=== PATIENT | female | born 1940 | race Caucasian/White ===

== ENCOUNTER 2018-04-18 18:01 | Inpatient (IN) ==
--- NOTE | 2018-04-18 19:05 | CT ---
EXAM DATE: 04/18/2018 6:59 PM EST AGE/SEX: 77 years / Female INDICATIONS: Acute neurological change. Possible seizure. Cephalgia, nausea and vomiting. CLINICAL DATA: This is the patient's initial encounter. Patient reports that signs and symptoms have been present for 1 day and indicates a pain score of 2/10. MEDICAL/SURGICAL HISTORY: Chronic obstructive pulmonary disease. Hypertension. None. RADIATION DOSE: 55.44 CTDI (mGy) COMPARISON: . TECHNIQUE: CT of the head without contrast. Using automated exposure control and adjustment of the mA and/or kV according to patient size, radiation dose was kept as low as reasonably achievable to ob tain optimal diagnostic quality images. DICOM format image data is available electronically for revi ew and comparison. FINDINGS: There is no evidence for intracranial hemorrhage, mass effect, mass lesions, or edema. The visualize d bony structures appear intact. Slight degree of brain atrophy is seen. Slight periventricular whit e matter changes are seen nonspecific mostly consistent with chronic small vessel ischemic changes. There are no signs of acute infarction for technique. CONCLUSION: Slight chronic small vessel ischemic and atrophic changes. Electronically signed by: Maryanne Dumas MD Board Certified Radiologist 04/18/2018 7:03 PM EST
--- NOTE | 2018-04-18 19:23 | ED ---
HPI General Chief Complaint: Seizure Stated Complaint: Diabetic Time Seen by Provider: 04/18/18 18:14 Source: patient, family and EMS Mode of arrival: EMS Limitations: no limitations History of Present Illness HPI Narrative: 77-year-old female presents to the emergency department by EMS transport from home where she was witnessed by her daughter to have a 2-minute generalized tonic-clonic seizure without tongue trauma or bladder or bowel incontinence. Patient has been having issues with memory just and some intermittent confusion since Saturday evening. This reportedly has been noticed by the and the daughter and family members. 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 No prior history of seizure. Patient was noted by paramedics to have a blood sugar of 56 was given D10 and on repeat blood sugar was 150 and 152. Patient was afebrile. Patient had a period of being postictal. Patient did have an episode of vomiting without aspiration witnessed by paramedics and family members and she was transferred from the ground where the family had placed her and then onto the stretcher. Upon arrival to the emergency department episode of small amount of emesis no hematemesis no coffee-ground emesis no bilious emesis. Patient complains of ongoing lower abdominal pain that she describes as mild. No history of colitis or diverticulitis. No recent antibiotic use. No diarrhea melena hematochezia. Patient has been having some urinary frequency and urgency and no dysuria. No flank pain or hematuria. Patient's has history of hypertension dyslipidemia hypothyroidism COPD and gouty arthritis. Patient denies personal history of cardiac disease TIA CVA headaches or seizure disorder. Patient has multiple vague complaints of having on and off subjective fever sore throat chest pain arm pain. Patient notes some mild headache at this time that she cannot quantitate just says is mild and it comes and goes. Patient complains of having neck pain since her seizure but on exam has no neck pain and denies pain at this time. Patient has had no sinus pressure drainage denies any sore throat this time denies earache or neck stiffness. Patient has been having some intermittent chest pain but denies chest pain at this time. Patient denies having any shortness of breath or orthopnea or exacerbation of her history of COPD. Patient has noted that for some time now she has recurrent nausea but is unable to identify duration of her nausea. Patient denies having any vomiting except for today. Patient's been having some lower abdominal pain but is not sure as to how long but has noticed it over the past 2 days. No change in her bowel movements. Patient has had no new arm or leg numbness tingling or weakness or ataxia of gait. Patient has had injury to her right upper extremity in the past and at times has difficulty with range of motion of the right upper extremity secondary to taking her pain. Family member has not noticed any change in her use of her upper extremities or lower extremities or ataxia of gait. Patient denies any visual disturbance double vision loss of vision or blurred vision. Patient had no photophobia. Patient states headache that she has is mild not sudden onset not thunderclap and not worst ever and has not taken any medications. Patient's had no change in her medications. Reportedly her primary has been monitoring her blood sugar for borderline abnormal blood sugar family does not know if it is abnormally higher abnormally low. Patient is not aware of her blood sugar being abnormally higher abnormally low. Patient is also more recently been monitored to have elevated platelets and has an appointment next week with a physician to evaluate her platelet count. Increased bruising or bleeding. complaint: Reports seizure Onset (ago): minute(s) Description of Episode: Reports loss of consciousness, tonic-clonic movement and post-event confusion; Denies bladder incontinence and bowel incontinence Duration of episode: 2 -: minutes(s) (per daughter/witness) Witnessed: yes - by bystander (daughter) Trauma: No Seizure History: Reports none Place: home Possible Precipitating Event: Reports none Associated symptoms: Reports chest pain (on and off; none now), confusion (on and off since Saturday evening per patient and at bedside), fever/ chills (subjective on and off "for awhile") and other (nausea and lower abdominal pain); Denies cough, diaphoresis, loss of appetite, malaise, rash, shortness of breath, syncope and weakness Treatments prior to arrival: Reports other (zofran emesis x 1 and on arrival to the ED emesis x 1) Related Data Home Medications Medication Instructions Recorded Confirmed allopurinol 100 mg PO DAILY 04/18/18 04/18/18 clonidine HCl 0.2 mg PO BID 04/18/18 04/18/18 isosorbide mononitrate 30 mg PO DAILY 04/18/18 04/18/18 levothyroxine 100 mcg PO DAILY 04/18/18 04/18/18 lisinopril-hydrochlorothiazide 1 tab PO DAILY 04/18/18 04/18/18 pantoprazole 40 mg PO DAILY 04/18/18 04/18/18 simvastatin 20 mg PO QPM 04/18/18 04/18/18 Allergies Allergy/AdvReac Type Severity Reaction Status Date / Time No Known Allergies Allergy Verified 04/18/18 18:13 Review of Systems ROS: all other systems reviewed are negative Constitutional Reports as per HPI Eyes Denies blurry vision, Denies diplopia, Denies eye pain and Denies photophobia ENT Reports headache(s) ("very mild") and Reports sore throat (on and off for awhile none today) Cardiovascular Reports chest pain (on and off none now), Denies diaphoresis, Denies edema, Denies claudication, Denies palpitations and Denies dyspnea Respiratory Denies chest congestion, Denies cough, Denies pain on inspiration and Denies dyspnea Gastrointestinal Reports abdominal pain (lower abdomen for a few days), Reports nausea and Reports vomiting (x 2 today) Genitourinary Reports urinary frequency and Reports dysuria Musculoskeletal Denies muscle weakness, Reports neck pain (on and off since seizure), Denies numbness, Reports stiffness (right arm pain for few years) and Denies tingling Integumentary/Breasts Denies pruritus, Denies rash and Denies wounds Neurologic Denies abnormal hearing, Denies abnormal speech, Denies abnormal gait, Reports confusion (intermittent since Saturday), Denies dizziness, Reports headache(s) (as above), Denies loss of vision, Reports memory loss (mild), Denies numbness, Reports convulsions (today ), Denies sensory deficit, Denies paresthesias, Denies disequilibrium and Denies weakness Psychiatric Denies anxiety, Reports difficulty concentrating, Denies auditory hallucinations , Denies mood swings and Denies visual hallucinations Endocrine Reports polyuria Comments: per family per PCP "watching borderline sugar" Hematologic/Lymphatic Denies easy bruising, Denies lymphadenopathy and Reports other (high platlets) Allergic/Immunologic Denies urticaria and Denies wheezing PMFSH Medical History Medical History Borderline diabetes (Acute) COPD (chronic obstructive pulmonary disease) (Acute) High cholesterol (Acute) Hypertension (Acute) Sleep apnea (Acute) Surgical History Surgical History No history of previous surgery (Acute) Social History Social History Substance History: No History of Abuse Smoking Status: Former smoker How Often Do You Have a Drink Containing Alcohol: Never Recent Travel in [facility] within the Last 8 Weeks: No Recent Out of Country Travel within the Last 8 Weeks: No Immunization History Tetanus Immunization: >5 Years Exam Narrative Exam Narrative: GENERAL: Well-developed well-nourished elderly female in no acute distress no respiratory distress GCS 15 NIH SS 0 SKIN: Focused skin assessment warm/dry. HEAD: Atraumatic. Normocephalic. EYES: Pupils equal and round. No scleral icterus. No injection or drainage. ENT: No nasal bleeding or discharge. Mucous membranes pink and moist. NECK: Trachea midline. No JVD. No midline tenderness to direct palpation along the cervical spine no bony step-off no meningismus. CARDIOVASCULAR: Regular rate and rhythm. No murmur appreciated. RESPIRATORY: No accessory muscle use. Clear to auscultation. Breath sounds equal bilaterally. GASTROINTESTINAL: Abdomen soft, left lower quadrant and suprapubic tenderness to palpation without guarding or rebound, nondistended. Hepatic and splenic margins not palpable. MUSCULOSKELETAL: No obvious deformities. No clubbing. No cyanosis. No edema. NEUROLOGICAL: Awake and alert. No obvious cranial nerve deficits. Motor grossly within normal limits. Sensory exam intact to light touch. No pronator drift. No limb ataxia. Normal speech. PSYCHIATRIC: Appropriate mood and affect; insight and judgment normal. Course Initial Documented Vital Signs Temperature 98.1 F 04/18/18 18:05 Pulse Rate 85 04/18/18 18:05 Respiratory Rate 18 04/18/18 18:05 Blood Pressure 156/91 H 04/18/18 18:05 Pulse Oximetry 92 L 04/18/18 18:05 Last Documented Vital Signs Temperature 98.1 F 04/18/18 18:05 Pulse Rate 72 04/18/18 20:41 Respiratory Rate 16 04/18/18 20:41 Blood Pressure 128/68 04/18/18 20:41 Pulse Oximetry 94 L 04/18/18 20:41 Medical Decision Making MDM Narrative Medical decision making narrative: 77-year-old female presents to the emergency department by EMS transport from home where she was witnessed to have a 2- minute tonic-clonic seizure by family members without associated trauma. No prior history of trauma. Episode of vomiting post convulsion and episode of emesis in the emergency department no hematemesis or coffee-ground emesis. Patient with multiple vague symptoms that have been present over the past several days to weeks also family members report that since Saturday she has been having episodes of complete forgetfulness and loss of thought and inability to concentrate that are brief in duration no associated seizure activity with these episodes is also being monitored for borderline diabetes possibly and noted to be hypoglycemic with a blood sugar of 56 by paramedics. Patient states that she has had some vague symptoms such as on and off subjective fever but is taken no medication for this on and off sore throat but is taken no medication for this on and off mild headache is taken no medications has had on and off lower abdominal pain and polyuria. Patient has no fever today has had no headache today although has mild headache at this time has had frequent urination no dysuria at this time and still has lower abdominal pain at this time. Patient is also complained of some nonradiating chest pain that has been intermittent but denies any at this time. Patient has chronic right upper extremity pain that functionally seems to be bothering her at this time but denies any weakness in the extremity and does not demonstrate any weakness on physical exam. There is no deformity of the extremity and daughter reports no injury with this episode of seizure. Patient was not noticed to have a tongue trauma and no episode of incontinence. IV access obtained patient placed on potline monitor continuous pulse oximetry stat CT brain noncontrast ordered along with a CT of the cervical spine EKG lab work ordered patient with complaint of nausea given additional dose of Zofran blood sugar repeated of 150. Will obtain urine specimen chest x-ray lactic acid and serum ammonia @ 9:10 PM troponin I elevated 0.13, high risk range no chest pain --EKG: Normal sinus rhythm rate [address] elevation injury pattern or ectopy noted no ischemic changes, artifact is present at baseline; patient's physical exam history lab values EKG CT brain noncontrast have been discussed with Dr. Alvarez who will accept patient to her service for new onset seizure ACS elevated troponin I thrombocytosis with history of hypertension, dyslipidemia, prescribed isosorbide, and borderline diabetes. Patient will be started on heparin without bolus per Dr. Alvarez will start heparin here in the emergency department. Patient having no chest pain at this time. Patient will be admitted to stepdown at [facility]. Medical Screen Exam Complete: Yes Emergency Medical Condition: Yes Lab Data Lab results reviewed: Yes I reviewed the patient's lab results. Result diagrams: 04/18/18 19:00 04/18/18 19:00 Lab Results 04/18/18 04/18/18 04/18/18 Range/Units 18:18 19:00 19:00 CBC w Diff Slide review pending WBC 5.9 (4.0-11.0) th/mm3 RBC 6.50 H (4.00-5.30) mil/mm3 Hgb 15.7 H (11.6-15.3) gm/dL Hct 49.6 H (35.0-46.0) % MCV 76.3 L (80.0-100.0) fL MCH 24.2 L (27.0-34.0) pg MCHC 31.7 L (32.0-36.0) % RDW 15.7 (11.6-17.2) % Plt Count 553 H (150-450) th/mm3 MPV 9.2 (7.0-11.0) fL Neut % (Auto) 67.1 (16.0-70.0) % Lymph % (Auto) 23.7 (9.0-44.0) % Pitkin % (Auto) 8.0 (0.0-8.0) % Eos % (Auto) 0.3 (0.0-4.0) % Baso % (Auto) 0.9 (0.0-2.0) % Neut # (Auto) 3.9 (1.8-7.7) th/mm3 Lymph # (Auto) 1.4 (1.0-4.8) th/mm3 Pitkin # (Auto) 0.5 (0.0-0.9) th/mm3 Eos # (Auto) 0.0 (0.0-0.4) th/mm3 Baso # (Auto) 0.1 (0.0-0.2) th/mm3 WBC Differential . Diff Scan Auto diff confirmed Differential Comment . Platelet Estimate High H (Normal) Platelet Morphology Enlarged H (Normal) PT (9.8-11.6) sec INR Ratio APTT (23.4-31.7) sec Sodium 134 L (136-145) meq/L Potassium 5.0 (3.5-5.1) meq/L Chloride 102 (98-107) meq/L Carbon Dioxide 25.9 (21.0-32.0) meq/L Anion Gap 6 (5-15) meq/L BUN 24 H (7-18) mg/dL Creatinine 1.20 H (0.50-1.00) mg/dL Estimated GFR 43 L (>89) mL/min POC Glucose 152 (68-110) mg/dl Random Glucose 103 (74-106) mg/dL Lactic Acid (0.4-2.0) mmol/L Calcium 9.1 (8.5-10.1) mg/dL Magnesium 1.9 (1.5-2.5) mg/dL Ammonia (11-32) mcmol/L Troponin I (0.02-0.05) ng/mL Urine Color (Yellw/Straw) Urine Clarity (Clear) Urine pH (5.0-8.5) Ur Specific Chamberlain (1.002-1.035) Urine Protein (Neg-Trace) mg/dL Urine Glucose (UA) (Negative) mg/dL Urine Ketones (Negative) mg/dL Urine Occult Blood (Negative) Urine Nitrate (Negative) Urine Bilirubin (Negative) Urine Urobilinogen (Less than 2) mg/dL Ur Leukocyte Esterase (Negative) Urine WBC (0-5) /hpf Ur Squamous Epith Cells (0-5) /hpf Urine Bacteria (None) /hpf Urine Mucus (Occasional) /lpf Micro UA Comment Ur Microscopic Review 04/18/18 04/18/18 04/18/18 Range/Units 19:00 19:31 19:40 CBC w Diff WBC (4.0-11.0) th/mm3 RBC (4.00-5.30) mil/mm3 Hgb (11.6-15.3) gm/dL Hct (35.0-46.0) % MCV (80.0-100.0) fL MCH (27.0-34.0) pg MCHC (32.0-36.0) % RDW (11.6-17.2) % Plt Count (150-450) th/mm3 MPV (7.0-11.0) fL Neut % (Auto) (16.0-70.0) % Lymph % (Auto) (9.0-44.0) % Pitkin % (Auto) (0.0-8.0) % Eos % (Auto) (0.0-4.0) % Baso % (Auto) (0.0-2.0) % Neut # (Auto) (1.8-7.7) th/mm3 Lymph # (Auto) (1.0-4.8) th/mm3 Pitkin # (Auto) (0.0-0.9) th/mm3 Eos # (Auto) (0.0-0.4) th/mm3 Baso # (Auto) (0.0-0.2) th/mm3 WBC Differential Diff Scan Differential Comment Platelet Estimate (Normal) Platelet Morphology (Normal) PT 11.2 (9.8-11.6) sec INR 1.1 Ratio APTT 31.7 (23.4-31.7) sec Sodium (136-145) meq/L Potassium (3.5-5.1) meq/L Chloride (98-107) meq/L Carbon Dioxide (21.0-32.0) meq/L Anion Gap (5-15) meq/L BUN (7-18) mg/dL Creatinine (0.50-1.00) mg/dL Estimated GFR (>89) mL/min POC Glucose (68-110) mg/dl Random Glucose (74-106) mg/dL Lactic Acid (0.4-2.0) mmol/L Calcium (8.5-10.1) mg/dL Magnesium (1.5-2.5) mg/dL Ammonia (11-32) mcmol/L Troponin I 0.13 H (0.02-0.05) ng/mL Urine Color Yellow (Yellw/Straw) Urine Clarity Slightly cloudy (Clear) Urine pH 6.0 (5.0-8.5) Ur Specific Chamberlain 1.015 (1.002-1.035) Urine Protein Negative (Neg-Trace) mg/dL Urine Glucose (UA) 100 H (Negative) mg/dL Urine Ketones Negative (Negative) mg/dL Urine Occult Blood Trace (Negative) Urine Nitrate Negative (Negative) Urine Bilirubin Negative (Negative) Urine Urobilinogen 0.2 (Less than 2) mg/dL Ur Leukocyte Esterase Negative (Negative) Urine WBC 0-5 (0-5) /hpf Ur Squamous Epith Cells 0-5 (0-5) /hpf Urine Bacteria Few H (None) /hpf Urine Mucus Rare H (Occasional) /lpf Micro UA Comment Culture not ind Ur Microscopic Review Microscopic reviewed 04/18/18 04/18/18 Range/Units 19:40 19:40 CBC w Diff WBC (4.0-11.0) th/mm3 RBC (4.00-5.30) mil/mm3 Hgb (11.6-15.3) gm/dL Hct (35.0-46.0) % MCV (80.0-100.0) fL MCH (27.0-34.0) pg MCHC (32.0-36.0) % RDW (11.6-17.2) % Plt Count (150-450) th/mm3 MPV (7.0-11.0) fL Neut % (Auto) (16.0-70.0) % Lymph % (Auto) (9.0-44.0) % Pitkin % (Auto) (0.0-8.0) % Eos % (Auto) (0.0-4.0) % Baso % (Auto) (0.0-2.0) % Neut # (Auto) (1.8-7.7) th/mm3 Lymph # (Auto) (1.0-4.8) th/mm3 Pitkin # (Auto) (0.0-0.9) th/mm3 Eos # (Auto) (0.0-0.4) th/mm3 Baso # (Auto) (0.0-0.2) th/mm3 WBC Differential Diff Scan Differential Comment Platelet Estimate (Normal) Platelet Morphology (Normal) PT (9.8-11.6) sec INR Ratio APTT (23.4-31.7) sec Sodium (136-145) meq/L Potassium (3.5-5.1) meq/L Chloride (98-107) meq/L Carbon Dioxide (21.0-32.0) meq/L Anion Gap (5-15) meq/L BUN (7-18) mg/dL Creatinine (0.50-1.00) mg/dL Estimated GFR (>89) mL/min POC Glucose (68-110) mg/dl Random Glucose (74-106) mg/dL Lactic Acid 1.2 (0.4-2.0) mmol/L Calcium (8.5-10.1) mg/dL Magnesium (1.5-2.5) mg/dL Ammonia 18 (11-32) mcmol/L Troponin I (0.02-0.05) ng/mL Urine Color (Yellw/Straw) Urine Clarity (Clear) Urine pH (5.0-8.5) Ur Specific Chamberlain (1.002-1.035) Urine Protein (Neg-Trace) mg/dL Urine Glucose (UA) (Negative) mg/dL Urine Ketones (Negative) mg/dL Urine Occult Blood (Negative) Urine Nitrate (Negative) Urine Bilirubin (Negative) Urine Urobilinogen (Less than 2) mg/dL Ur Leukocyte Esterase (Negative) Urine WBC (0-5) /hpf Ur Squamous Epith Cells (0-5) /hpf Urine Bacteria (None) /hpf Urine Mucus (Occasional) /lpf Micro UA Comment Ur Microscopic Review Imaging Data Attestation: I personally reviewed and interpreted this imaging study as follows : Radiologist's impression: Head CT 04/18/18 18:19 CONCLUSION: Slight chronic small vessel ischemic and atrophic changes. Cervical Spine CT 04/18/18 19:23 CONCLUSION: Degenerative spondylosis without any significant compromise to the exiting nerve roots or the thecal sac. Chest X-Ray 04/18/18 19:30 CONCLUSION: Mild left lung atelectasis . ECG Data EKG Prior to Arrival: No Attestation: I personally reviewed and interpreted this ECG as follows: Discharge Plan Discharge Disposition Patient Disposition: ED Admit(ED Internal Use Only) Discharge Condition Condition: Stable Discharge Details Diagnosis: New onset seizure, ACS (acute coronary syndrome), Elevated troponin I level, Thrombocytosis Physicians Team ED Provider: Crystal Rabago Primary Care Provider: Do Jacque Miguel Rxs /Orders / Referrals /Forms Prescriptions: No Action isosorbide mononitrate 30 mg Tablet Extended Release 24 Hr 30 mg PO DAILY RF: 0 allopurinol 100 mg Tablet 100 mg PO DAILY RF: 0 levothyroxine 100 mcg Tablet 100 mcg PO DAILY RF: 0 clonidine HCl 0.2 mg Tablet 0.2 mg PO BID RF: 0 pantoprazole 40 mg Tablet,Delayed Release (Dr/Ec) 40 mg PO DAILY RF: 0 simvastatin 20 mg Tablet 20 mg PO QPM RF: 0 lisinopril-hydrochlorothiazide 10-12.5 mg Tablet 1 tab PO DAILY RF: 0 Discharge Interventions Interventions: Vital Signs Last Done: 04/18/18 20:41 Status ED Status: With Doctor
[2018-04-18 19:24] LABS: Baso # (Auto) 0.1 th/mm3 (0.0-0.2); Baso % (Auto) 0.9 % (0.0-2.0); Eos % (Auto) 0.3 % (0.0-4.0); Hematocrit 49.6 % (35.0-46.0); Hemoglobin 15.7 gm/dL (11.6-15.3); Lymph # (Auto) 1.4 th/mm3 (1.0-4.8); Lymph % (Auto) 23.7 % (9.0-44.0); Mean Corpuscular HGB Conc 31.7 % (32.0-36.0); Mean Corpuscular Hemoglobin 24.2 pg (27.0-34.0); Mean Corpuscular Volume 76.3 fL (80.0-100.0); Mean Platelet Volume 9.2 fL (7.0-11.0); Mono # (Auto) 0.5 th/mm3 (0.0-0.9); Neut # (Auto) 3.9 th/mm3 (1.8-7.7); Neut % (Auto) 67.1 % (16.0-70.0); Platelet Count 553 th/mm3 (150-450); Red Cell Distribution Width 15.7 % (11.6-17.2); White Blood Count 5.9 th/mm3 (4.0-11.0)
--- NOTE | 2018-04-18 19:46 | XR ---
EXAM DATE: 04/18/2018 7:39 PM EST AGE/SEX: 77 years / Female INDICATIONS: Shortness of breath. CLINICAL DATA: This is the patient's initial encounter. Patient reports that signs and symptoms have been present for 2 days and indicates a pain score of 0/10. MEDICAL/SURGICAL HISTORY: . Chronic obstructive pulmonary disease. Hypertension. None. COMPARISON: No prior exams available for comparison. FINDINGS: The lungs are clear without infiltrate, nodule, or mass except for slight linear atelectasi s left lower lung . There is no appreciable pleural effusion for technique. Heart and mediastinum a re unremarkable. CONCLUSION: Mild left lung atelectasis . Electronically signed by: Maryanne Dumas MD Board Certified Radiologist 04/18/2018 7:44 PM EST
[2018-04-18 19:48] LABS: Bilirubin,Urine Negative (Negative); Clarity,Urine Slightly Cloudy (Clear); Color,Urine Yellow (Yellw/Straw); Glucose,Urine (UA) 100 mg/dL (Negative); Leukocyte Esterase,Urine Negative (Negative); Nitrite,Urine Negative (Negative); Specific Gravity,Urine 1.015 (1.002-1.035); Urobilinogen,Urine 0.2 mg/dL (Less than 2)
[2018-04-18 19:54] LABS: Bacteria,Urine Few /hpf; Mucus,Urine Rare /lpf (Occasional); Squamous Epithelial Cell,Urine 0-5 /hpf (0-5); WBC,Urine 0-5 /hpf (0-5)
[2018-04-18 20:01] LABS: Activated Partial Thrombo Time 31.7 sec (23.4-31.7); INR 1.1 Ratio; Prothrombin Time 11.2 sec (9.8-11.6)
[2018-04-18 20:11] LABS: Calcium 9.1 mg/dL (8.5-10.1); Carbon Dioxide 25.9 meq/L (21.0-32.0); Magnesium 1.9 mg/dL (1.5-2.5)
--- NOTE | 2018-04-18 20:15 | CT ---
EXAM DATE: 04/18/2018 8:08 PM EST AGE/SEX: 77 years / Female INDICATIONS: Trauma. Possible seizure. Right neck pain. CLINICAL DATA: This is the patient's initial encounter. Patient reports that signs and symptoms have been present for 1 day and indicates a pain score of 2/10. MEDICAL/SURGICAL HISTORY: Chronic obstructive pulmonary disease. Hypertension. None. RADIATION DOSE: 28.09 CTDI (mGy) COMPARISON: . TECHNIQUE: Contiguous axial images were obtained using helical multirow detector technique. The vol umetric data was post-processed with multiplanar reconstruction in oblique axial, sagittal, and coron al planes. Using automated exposure control and adjustment of the mA and/or kV according to patient s ize, radiation dose was kept as low as reasonably achievable to obtain optimal diagnostic quality ion ges. DICOM format image data is available electronically for review and comparison. FINDINGS: No significant subluxation or soft tissue swelling is seen. No definite fracture is identified for te chnique. C2-C3: No appreciable compromise to the thecal sac, exiting nerve roots are seen. The neural foramin a are patent bilaterally. No appreciable thecal sac stenosis is seen. C3-C4: No appreciable compromise to the thecal sac, exiting nerve roots are seen. The neural foramin a are patent bilaterally. No appreciable thecal sac stenosis is seen. Slight bulging disc and hypertr ophic changes are seen with indentation on the thecal sac and no significant compromise to the thecal sac or the exiting nerve roots. C4-C5: Significant degenerative change is present in the disc space Slight bulging disc and hypertrophic changes are seen with indentation on the thecal sac and no signi ficant compromise to the thecal sac or the exiting nerve roots. Slight osteophyte formation bulging d isc protrude posteriorly partially into the bilateral lateral recess without any significant lateral recess stenosis. C5-C6: Significant degenerative change is present in the disc space Slight bulging disc and hypertrophic changes are seen with indentation on the thecal sac and no signi ficant compromise to the thecal sac or the exiting nerve roots. Slight osteophyte formation bulging d isc protrude posteriorly partially into the bilateral lateral recess without any significant lateral recess stenosis. C6-C7: Moderate degenerative change is present in the disc space Slight bulging disc and hypertrophic changes are seen with indentation on the thecal sac and no signi ficant compromise to the thecal sac or the exiting nerve roots. C7-T1: No appreciable compromise to the thecal sac, exiting nerve roots are seen. The neural foramin a are patent bilaterally. No appreciable thecal sac stenosis is seen. CONCLUSION: Degenerative spondylosis without any significant compromise to the exiting nerve roots o r the thecal sac. Electronically signed by: Maryanne Dumas MD Board Certified Radiologist 04/18/2018 8:13 PM EST
[2018-04-18] MEDS ORDERED: Bisacodyl 10 MG Supp RECTAL PRN (21:07)
[2018-04-18] MEDS ORDERED: Acetaminophen 325 MG Tablet PO PRN (21:07)
[2018-04-18] MEDS ORDERED: Heparin Drip 25,000 UNIT/250 ML BAG IV.CONT PRN (21:11)
[2018-04-18] MEDS: Sod Chloride 0.9% Inj 1,000 ML IV.CONT SCH (21:40)
--- NOTE | 2018-04-18 21:58 | ECG ---
Date Performed: 04/18/2018 Time Performed: 20:23:45 PTAGE: 77 years EKG: Sinus rhythm PATTERN CONSISTENT WITH PULMONARY DISEASE LEFT ANTERIOR FASCICULAR BLOCK ABNORMAL ECG No significant change from prior electrocardiogram. PREVIOUS TRACING : 05/25/2001 12.48 DOCTOR: Jaime Amador Interpretating Date/Time 04/18/2018 21:57:58
[2018-04-19 04:20] LABS: Baso # (Auto) 0.1 th/mm3 (0.0-0.2); Eos % (Auto) 0.3 % (0.0-4.0); Hematocrit 48.2 % (35.0-46.0); Hemoglobin 15.3 gm/dL (11.6-15.3); Lymph # (Auto) 1.5 th/mm3 (1.0-4.8); Lymph % (Auto) 22.7 % (9.0-44.0); Mean Corpuscular HGB Conc 31.8 % (32.0-36.0); Mean Corpuscular Hemoglobin 24.2 pg (27.0-34.0); Mean Corpuscular Volume 76.1 fL (80.0-100.0); Mean Platelet Volume 9.6 fL (7.0-11.0); Mono # (Auto) 0.5 th/mm3 (0.0-0.9); Mono % (Auto) 6.8 % (0.0-8.0); Neut # (Auto) 4.6 th/mm3 (1.8-7.7); Neut % (Auto) 68.2 % (16.0-70.0); Platelet Count 558 th/mm3 (150-450); Red Blood Count 6.34 mil/mm3 (4.00-5.30); Red Cell Distribution Width 15.8 % (11.6-17.2); White Blood Count 6.7 th/mm3 (4.0-11.0)
[2018-04-19 06:03] LABS: Alanine Aminotransferase 13 U/L (10-53); Alkaline Phosphatase 72 U/L (45-117); Anion Gap 8 meq/L (5-15); Aspartate Aminotransferase 25 U/L (15-37); Blood Urea Nitrogen 19 mg/dL (7-18); Calcium 8.8 mg/dL (8.5-10.1); Carbon Dioxide 25.5 meq/L (21.0-32.0); Chloride 103 meq/L (98-107); Glomerular Filtration Rate 48 mL/min (>89); Glucose,Random 100 mg/dL (74-106); Potassium 3.8 meq/L (3.5-5.1); Sodium 136 meq/L (136-145); Total Protein 7.7 g/dL (6.4-8.2)
[2018-04-19 06:36] LABS: Cholesterol 122 mg/dL (120-200)
[2018-04-19 06:38] LABS: Chol/HDL Ratio 3.42 Ratio; HDL Cholesterol 35.6 mg/dL (40.0-60.0); LDL Cholesterol,Calculated 71 mg/dL (0-99); Triglycerides 75 mg/dL (42-150)
[2018-04-19] MEDS: Senna/Docusate Sodium 8.6/50 MG Tablet PO SCH ×2 (08:41→20:53)
[2018-04-19] MEDS: Sod Chloride 0.9% Inj 1,000 ML IV.CONT SCH ×2 (08:41→20:29)
--- NOTE | 2018-04-19 11:51 | P.HPIM ---
History of Present Illness Primary Care Physician: Do Jacque Miguel Chief Complaint: Seizure History of Present Illness: Mrs. Moon is a 77-year-old female. She has a distant past history of seizure. It is reported by her daughter who witnessed the seizure that she had a 2-minute generalized tonic-clonic seizure. Subclinical seizure activity could have also been present as it was reported that she had some confusion which was an acute change from baseline starting about 3 days ago. She can recall being slightly off with her cognitive function. She does not recall the seizure. Postictal state was present but has resolved by the time I am seeing this patient. She did vomit after the seizure but does not have persistent nausea. At baseline she has COPD and uses oxygen intermittently. She also has coronary artery disease and chronic angina. She has not had any chest pain changes from baseline. When seen today she does not report chest pain. Troponin levels have been monitored and have stayed from 0.13-0.16, relatively flat. Cardiac strain on top of underlying coronary artery disease could have occurred during the 2-minute seizure. Additionally patient apparently has some mild chronic kidney disease which could also cause chronic mild elevation in her troponin. No acute chest pains reported by the patient before or after seizure activity. Inpatient Certification Inpatient Certification: I certify that the inpatient services were ordered in accordance with Medicare regulations governing the order. This includes certification that hospital inpatient services are reasonable and necessary and in the case of services not specified as inpatient-only under 42 CFR 419.22(n), that they are appropriately provided as inpatient services in accordance to with the 2-midnight benchmark under 43 CFR 412.3(e) Estimated Total Length of Stay (Days): 2 Plans for Post Hospital Care: Not yet determined Review of Systems Constitutional: No fevers, no chills no night sweats, no fatigue, no weakness Eyes: No eye pain, no blurry vision, no loss of vision ENT: No sore throat, no ear pain, no rhinorrhea Cardiovascular: No chest pain, no tachycardia, no palpitations, no syncope Respiratory: No wheezing, no cough, no shortness of breath Gastrointestinal: No abdominal pain, no black tarry stools, no bright red blood per rectum, no vomiting, no diarrhea Musculoskeletal: No joint pain, no muscle cramps, no stiffness Integumentary: No rash, no ulcers, no drainage Neurologic: No sensory loss, no loss of motor function, no dizziness, seizure Psychiatric: No behavioral changes, no hallucinations, no suicidal ideations [facility] Medical History Medical History Borderline diabetes (Acute) COPD (chronic obstructive pulmonary disease) (Acute) High cholesterol (Acute) Hypertension (Acute) Sleep apnea (Acute) Surgical History Surgical History No history of previous surgery (Acute) Family History Family History Other Osteoarthritis Social History Social History Substance History: No History of Abuse Second Hand Smoke Exposure: No Smoking Status: Former smoker How Often Do You Have a Drink Containing Alcohol: Never Recent Travel in [facility] within the Last 8 Weeks: No Recent Out of Country Travel within the Last 8 Weeks: No Immunization History Tetanus Immunization: Unsure Hx Influenza Vaccine This Season: Yes Medications and Allergies Allergies Allergy/AdvReac Type Severity Reaction Status Date / Time No Known Allergies Allergy Verified 04/18/18 18:13 Home Medications Medication Instructions Recorded Confirmed Type allopurinol 100 mg PO DAILY 04/18/18 04/18/18 History clonidine HCl 0.2 mg PO BID 04/18/18 04/18/18 History isosorbide mononitrate 30 mg PO DAILY 04/18/18 04/18/18 History levothyroxine 100 mcg PO DAILY 04/18/18 04/18/18 History lisinopril-hydrochlorothiazide 1 tab PO DAILY 04/18/18 04/18/18 History pantoprazole 40 mg PO DAILY 04/18/18 04/18/18 History simvastatin 20 mg PO QPM 04/18/18 04/18/18 History Active Medications: Active Medications Acetaminophen (Tylenol) 650 mg PO Q4H PRN PRN Reason: Temp > 100.4 Last Admin: 04/19/18 03:51 Dose: 650 mg Al Hydroxide/Mg Hydroxide (Milk Of Magnesia Liq) 30 ml PO Q12H PRN PRN Reason: Mild Constipation Aspirin (Ecotrin) 81 mg PO DAILY [facility] Last Admin: 04/19/18 08:41 Dose: 81 mg Bisacodyl (Dulcolax Supp) 10 mg RECTAL DAILY PRN PRN Reason: SEVERE CONSITIPATION Sodium Chloride (Ns Inj) 1,000 mls @ 100 mls/hr IV.CONT .Q10H [facility] Last Admin: 04/19/18 08:41 Dose: 100 mls/hr Heparin Sodium/Dextrose (Heparin/D5w 25,000 U/250 Ml) 25,000 unit in 250 mls @ 0 mls/hr IV.CONT TITRATE PRN; Protocol PRN Reason: Per Protocol Last Titration: 04/19/18 05:39 Dose: 800 units/hr, 8 mls/hr Lactulose (Lactulose Liq) 30 ml PO DAILY PRN PRN Reason: SEVERE CONSITIPATION Lorazepam (Ativan Inj) 1 mg IV.PUSH Q5M PRN PRN Reason: SEIZURES Ondansetron HCl (Zofran Inj) 4 mg IV.PUSH Q6H PRN PRN Reason: NAUSEA OR VOMITING Senna/Docusate Sodium (Ni-Colace) 1 tab PO BID [facility] Last Admin: 04/19/18 08:41 Dose: 1 tab Sennosides (Senokot) 17.2 mg PO Q12H PRN PRN Reason: Moderate Constipation Sodium Chloride (Ns Flush) 2 ml IV.FLUSH PRN PRN PRN Reason: FLUSH AFTER USING IV ACCESS Sodium Chloride (Ns Flush) 2 ml IV.FLUSH BID [facility] Last Admin: 04/19/18 08:42 Dose: 2 ml Sodium Chloride (Ns Flush) 2 ml IV.FLUSH PRN PRN PRN Reason: FLUSH AFTER USING IV ACCESS Physical Exam Vital signs: Vital Signs 04/18/18 18:05 04/18/18 19:00 04/18/18 19:29 Temperature 98.1 F Pulse Rate 85 74 69 Respiratory Rate 18 16 Blood Pressure 156/91 H 136/82 Pulse Oximetry 92 L 94 L 94 L 04/18/18 20:41 04/18/18 22:08 04/18/18 23:00 Temperature Pulse Rate 72 75 76 Respiratory Rate 16 16 19 Blood Pressure 128/68 113/62 Pulse Oximetry 94 L 97 94 L 04/18/18 23:02 04/18/18 23:37 04/18/18 23:42 Temperature 99.3 F Pulse Rate 80 74 Respiratory Rate 15 25 H Blood Pressure 111/65 131/68 Pulse Oximetry 94 L 94 L 04/19/18 00:00 04/19/18 04:00 04/19/18 05:11 Temperature 99 F Pulse Rate 68 58 L Respiratory Rate 14 16 Blood Pressure 105/59 L 107/65 Pulse Oximetry 95 96 04/19/18 07:47 04/19/18 08:00 04/19/18 09:00 Temperature 99.8 F H Pulse Rate 62 69 Respiratory Rate 19 Blood Pressure Pulse Oximetry 96 97 Intake & Output 04/18/18 04/19/18 04/19/18 18:59 06:59 18:59 Intake Total 208.2 / 208.2 1140 / 1140 Output Total 500 / 500 401 / 401 Balance -291.8 / -291.8 739 / 739 Weight 63.503 kg 64.4 kg Intake: IV 108.2 / 108.2 900 / 900 Heparin/D5W 25,000 U/250 mL 25, 8.2 / 8.2 000 unit In 250 ml @ Per Protocol IV.CONT TITRATE PRN Rx #:[id number] NS Inj 1,000 ML @ 100 mls/hr IV 100 / 100 900 / 900 .CONT .Q10H [facility]DRA Rx#:[id number] Oral 100 / 100 240 / 240 Output: Urine 500 / 500 400 / 400 Stool Other: # Voids 2 Date of Last Bowel Movement 04/19/18 04/19/18 Weight On Admission 63.7 kg Narrative: GENERAL: NAD, A&Ox3 HEAD: Normocephalic. NECK: Supple, trachea midline. No lymphadenopathy. EYES: No scleral icterus. No injection or drainage. CARDIOVASCULAR: Regular rate and rhythm without murmurs, gallops, or rubs. RESPIRATORY: Breath sounds equal bilaterally. No accessory muscle use. GASTROINTESTINAL: Abdomen soft, non-tender, nondistended. MUSCULOSKELETAL: No cyanosis, or edema. SKIN: Warm and dry. NEURO: No focal neurological deficits. Results Labs CBC & Chem 7: 04/19/18 04:00 04/19/18 04:[address] 04/18/18 18:19 CONCLUSION: Slight chronic small vessel ischemic and atrophic changes. Cervical Spine CT 04/18/18 19:23 CONCLUSION: Degenerative spondylosis without any significant compromise to the exiting nerve roots or the thecal sac. Chest X-Ray 04/18/18 19:30 CONCLUSION: Mild left lung atelectasis . Caprini VTE Risk Assessment Caprini VTE Risk Assessment: No/Low Risk (score <= 1) Caprini Risk Assessment Model: Point Value = 1 Point Value = 2 Point Value = 3 Point Value = 5 Age 41-60 Minor surgery BMI > 25 kg/m2 Swollen legs Varicose veins or History of unexplained or recurrent spontaneous Oral contraceptives or hormone replacement Sepsis (< 1 month) Serious lung disease, including pneumonia (< 1 month) Abnormal pulmonary function Acute myocardial infarction Congestive heart failure (< 1 month) History of inflammatory bowel disease Medical patient at bed rest Age 61-74 Arthroscopic surgery Major open surgery (> 45 min) Laparoscopic surgery (> 45 min) Malignancy Confined to bed (> 72 hours) Immobilizing plaster cast Central venous access Age >= 75 History of VTE Family history of VTE Factor V Leiden Prothrombin [id number] Lupus anticoagulant Anticardiolipin antibodies Elevated serum homocysteine Heparin-induced thrombocytopenia Other congenital or acquired thrombophilia Stroke (< 1 month) Elective arthroplasty Hip, pelvis, or leg fracture Acute spinal cord injury (< 1 month) Prophylaxis Regimen: Total Risk Factor Score Risk Level Prophylaxis Regimen 0-1 Low Early ambulation 2 Moderate Order ONE of the following: *Sequential Compression Device (SCD) *Heparin 5000 units SQ BID 3-4 Higher Order ONE of the following medications: *Heparin 5000 units SQ TID *Enoxaparin/Lovenox 40 mg SQ daily (WT < 150 kg, CrCl > 30 mL/min) *Enoxaparin/Lovenox 30 mg SQ daily (WT < 150 kg, CrCl > 10-29 mL/min) *Enoxaparin/Lovenox 30 mg SQ BID (WT < 150 kg, CrCl > 30 mL/min) AND/OR *Sequential Compression Device (SCD) 5 or more Highest Order ONE of the following medications: *Heparin 5000 units SQ TID (Preferred with Epidurals) *Enoxaparin/Lovenox 40 mg SQ daily (WT < 150 kg, CrCl > 30 mL/min) *Enoxaparin/Lovenox 30 mg SQ daily (WT < 150 kg, CrCl > 10-29 mL/min) *Enoxaparin/Lovenox 30 mg SQ BID (WT < 150 kg, CrCl > 30 mL/min) AND *Sequential Compression Device (SCD) Assessment and Plan Plan 77-year-old female admitted secondary to acute seizure. Acute seizure Past history of seizure EEG Neurology consulted Continue antibiotics Follow clinically for any recurrence of seizures Neurochecks Seizure precautions CAD Chronic Angina Elevated Troponin (mild) Likely related to cardiac strain or chronic kidney disease Continue monitoring troponin levels Clinically this patient has no symptoms of acute coronary syndrome Monitor on telemetry Chronic kidney disease Follow renal function Avoid nephrotoxins Diabetes mellitus type 2 Follow blood sugars Insulin sliding scale Diabetic diet COPD No acute exacerbations Follow clinically Continue baseline treatments Hyperlipidemia Continue present treatment Follow as an outpatient Hypertension Continue baseline treatment Follow blood pressures Adjust treatments as needed DVT prophylaxis SCDs H&P: Quality VTE Deep Vein Thrombosis/Pulmonary Embolism Present on Admission: No
--- NOTE | 2018-04-19 13:42 | P.CONNEU ---
History of Present Illness Service: Neurology Primary Care Provider: Do Jacque Miguel Chief Complaint: Seizure History of Present Illness: 77-year-old female admitted for seizure activity. She sitting on her tablet speaking to her daughter when she suddenly dropped it had a convulsion went down and was confused afterwards. Patient has little recollection of this episode. No obvious triggers or precipitating etiologies. The patient states she did have a seizure a number of years ago. EVAC was called her blood sugar was found to be 61. Denies any recent head or neck trauma any history of TIA or stroke. At her baseline at present. Review of Systems All other systems reviewed negative except as stated in HPI [facility] - History History Provided By: Patient - Medical History Medical History: Medical History (Last Reviewed 04/19/18 @ 07:20 by Matthew Pineda) Borderline diabetes COPD (chronic obstructive pulmonary disease) High cholesterol Hypertension Sleep apnea - Surgical History Surgical History: Surgical History (Last Reviewed 04/19/18 @ 07:20 by Matthew Pineda) No history of previous surgery - Family History Family History: Family History (Last Reviewed 04/18/18 @ 19:26 by Crystal Rabago MD) Other Osteoarthritis - Tobacco History Second Hand Smoke Exposure: No Smoking Status: Former smoker - Alcohol History How Often Do You Have a Drink Containing Alcohol: Never - Substance Use History Substance History: No History of Abuse - Travel History Recent Travel in the [place] Within the Last 8 Weeks: No Recent Travel Out of the Country Within the Last 8 Weeks: No - Immunization History Tetanus Immunization: Unsure Hx Influenza Vaccine This Season: Yes Medications and Allergies Active Medications: Active Medications Acetaminophen (Tylenol) 650 mg PO Q4H PRN PRN Reason: Temp > 100.4 Last Admin: 04/19/18 03:51 Dose: 650 mg Al Hydroxide/Mg Hydroxide (Milk Of Magnrebeca Liq) 30 ml PO Q12H PRN PRN Reason: Mild Constipation Aspirin (Ecotrin) 81 mg PO DAILY [facility] Last Admin: 04/19/18 08:41 Dose: 81 mg Bisacodyl (Dulcolax Supp) 10 mg RECTAL DAILY PRN PRN Reason: SEVERE CONSITIPATION Sodium Chloride (Ns Inj) 1,000 mls @ 100 mls/hr IV.CONT .Q10H [facility] Last Admin: 04/19/18 08:41 Dose: 100 mls/hr Heparin Sodium/Dextrose (Heparin/D5w 25,000 U/250 Ml) 25,000 unit in 250 mls @ 0 mls/hr IV.CONT TITRATE PRN; Protocol PRN Reason: Per Protocol Last Titration: 04/19/18 05:39 Dose: 800 units/hr, 8 mls/hr Lactulose (Lactulose Liq) 30 ml PO DAILY PRN PRN Reason: SEVERE CONSITIPATION Lorazepam (Ativan Inj) 1 mg IV.PUSH Q5M PRN PRN Reason: SEIZURES Ondansetron HCl (Zofran Inj) 4 mg IV.PUSH Q6H PRN PRN Reason: NAUSEA OR VOMITING Senna/Docusate Sodium (Ni-Colace) 1 tab PO BID [facility] Last Admin: 04/19/18 08:41 Dose: 1 tab Sennosides (Senokot) 17.2 mg PO Q12H PRN PRN Reason: Moderate Constipation Sodium Chloride (Ns Flush) 2 ml IV.FLUSH PRN PRN PRN Reason: FLUSH AFTER USING IV ACCESS Sodium Chloride (Ns Flush) 2 ml IV.FLUSH BID [facility] Last Admin: 04/19/18 08:42 Dose: 2 ml Sodium Chloride (Ns Flush) 2 ml IV.FLUSH PRN PRN PRN Reason: FLUSH AFTER USING IV ACCESS Allergies Allergy/AdvReac Type Severity Reaction Status Date / Time No Known Allergies Allergy Verified 04/18/18 18:13 Home Medications Medication Instructions Recorded Confirmed Type allopurinol 100 mg PO DAILY 04/18/18 04/18/18 History clonidine HCl 0.2 mg PO BID 04/18/18 04/18/18 History isosorbide mononitrate 30 mg PO DAILY 04/18/18 04/18/18 History levothyroxine 100 mcg PO DAILY 04/18/18 04/18/18 History lisinopril-hydrochlorothiazide 1 tab PO DAILY 04/18/18 04/18/18 History pantoprazole 40 mg PO DAILY 04/18/18 04/18/18 History simvastatin 20 mg PO QPM 04/18/18 04/18/18 History Exam Vital signs: Vital Signs 04/18/18 18:05 04/18/18 19:00 04/18/18 19:29 Temperature 98.1 F Pulse Rate 85 74 69 Respiratory Rate 18 16 Blood Pressure 156/91 H 136/82 Pulse Oximetry 92 L 94 L 94 L 04/18/18 20:41 04/18/18 22:08 04/18/18 23:00 Temperature Pulse Rate 72 75 76 Respiratory Rate 16 16 19 Blood Pressure 128/68 113/62 Pulse Oximetry 94 L 97 94 L 04/18/18 23:02 04/18/18 23:37 04/18/18 23:42 Temperature 99.3 F Pulse Rate 80 74 Respiratory Rate 15 25 H Blood Pressure 111/65 131/68 Pulse Oximetry 94 L 94 L 04/19/18 00:00 04/19/18 04:00 04/19/18 05:11 Temperature 99 F Pulse Rate 68 58 L Respiratory Rate 14 16 Blood Pressure 105/59 L 107/65 Pulse Oximetry 95 96 04/19/18 07:47 04/19/18 08:00 04/19/18 09:00 Temperature 99.8 F H Pulse Rate 62 69 Respiratory Rate 19 Blood Pressure Pulse Oximetry 96 97 Intake & Output 04/18/18 04/19/18 04/19/18 18:59 06:59 18:59 Intake Total 208.2 / 208.2 1140 / 1140 Output Total 500 / 500 401 / 401 Balance -291.8 / -291.8 739 / 739 Weight 63.503 kg 64.4 kg Intake: IV 108.2 / 108.2 900 / 900 Heparin/D5W 25,000 U/250 mL 25, 8.2 / 8.2 000 unit In 250 ml @ Per Protocol IV.CONT TITRATE PRN Rx #:[id number] NS Inj 1,000 ML @ 100 mls/hr IV 100 / 100 900 / 900 .CONT .Q10H SANDRA Rx#:[id number] Oral 100 / 100 240 / 240 Output: Urine 500 / 500 400 / 400 Stool Other: # Voids 2 Date of Last Bowel Movement 04/19/18 04/19/18 Weight On Admission 63.7 kg Narrative: GENERAL: in NAD, SKIN: Warm and dry. HEAD: Atraumatic. Normocephalic. EYES: Pupils equal and round. No scleral icterus. ENT: No nasal bleeding or discharge. Mucous membranes pink and moist. NECK: Trachea midline. No JVD. CARDIOVASCULAR: Regular rate and rhythm. RESPIRATORY: No accessory muscle use. On supplemental oxygen GASTROINTESTINAL: Abdomen soft, non-tender, nondistended. MUSCULOSKELETAL: Extremities without clubbing, cyanosis, or edema. NEUROLOGICAL: Awake and alert. No aphasia, oriented x3 fluent articulate, No facial asymmetry, OU 3-2mm, eomi, VFF, No drift, Motor grossly within normal limits. Five out of 5 muscle strength in the arms and legs. No neglect, PSYCHIATRIC: Appropriate mood and affect; insight and judgment normal. - Constitutional no acute distress - Routine HEENT Exam Head: Present: normocephalic Eye: Present: EOMI Results - Labs CBC & Chem 7: 04/19/18 04:00 04/19/18 04:00 Labs: Laboratory Results - last 24 hr 04/18/18 04/18/18 04/18/18 18:18 19:00 19:00 CBC w Diff Slide review pending WBC 5.9 RBC 6.50 H Hgb 15.7 H Hct 49.6 H MCV 76.3 L MCH 24.2 L MCHC 31.7 L RDW 15.7 Plt Count 553 H MPV 9.2 Neut % (Auto) 67.1 Lymph % (Auto) 23.7 [place] % (Auto) 8.0 Eos % (Auto) 0.3 Baso % (Auto) 0.9 Neut # (Auto) 3.9 Lymph # (Auto) 1.4 [place] # (Auto) 0.5 Eos # (Auto) 0.0 Baso # (Auto) 0.1 WBC Differential . Diff Scan Auto diff confirmed Differential Comment . Platelet Estimate High H Platelet Morphology Enlarged H PT INR APTT Sodium 134 L Potassium 5.0 Chloride 102 Carbon Dioxide 25.9 Anion Gap 6 BUN 24 H Creatinine 1.20 H Estimated GFR 43 L POC Glucose 152 Random Glucose 103 Lactic Acid Calcium 9.1 Magnesium 1.9 Total Bilirubin AST ALT Alkaline Phosphatase Ammonia Troponin I Total Protein Albumin Triglycerides Cholesterol LDL Cholesterol, Calc HDL Cholesterol Cholesterol/HDL Ratio Urine Color Urine Clarity Urine pH Ur Specific [place] Urine Protein Urine Glucose (UA) Urine Ketones Urine Occult Blood Urine Nitrate Urine Bilirubin Urine Urobilinogen Ur Leukocyte Esterase Urine WBC Ur Squamous Epith Cells Urine Bacteria Urine Mucus Micro UA Comment Ur Microscopic Review 04/18/18 04/18/18 04/18/18 19:00 19:31 19:40 CBC w Diff WBC RBC Hgb Hct MCV MCH MCHC RDW Plt Count MPV Neut % (Auto) Lymph % (Auto) [place] % (Auto) Eos % (Auto) Baso % (Auto) Neut # (Auto) Lymph # (Auto) [place] # (Auto) Eos # (Auto) Baso # (Auto) WBC Differential Diff Scan Differential Comment Platelet Estimate Platelet Morphology PT 11.2 INR 1.1 APTT 31.7 Sodium Potassium Chloride Carbon Dioxide Anion Gap BUN Creatinine Estimated GFR POC Glucose Random Glucose Lactic Acid Calcium Magnesium Total Bilirubin AST ALT Alkaline Phosphatase Ammonia Troponin I 0.13 H Total Protein Albumin Triglycerides Cholesterol LDL Cholesterol, Calc HDL Cholesterol Cholesterol/HDL Ratio Urine Color Yellow Urine Clarity Slightly cloudy Urine pH 6.0 Ur Specific [place] 1.015 Urine Protein Negative Urine Glucose (UA) 100 H Urine Ketones Negative Urine Occult Blood Trace Urine Nitrate Negative Urine Bilirubin Negative Urine Urobilinogen 0.2 Ur Leukocyte Esterase Negative Urine WBC 0-5 Ur Squamous Epith Cells 0-5 Urine Bacteria Few H Urine Mucus Rare H Micro UA Comment Culture not ind Ur Microscopic Review Microscopic reviewed 04/18/18 04/18/18 04/19/18 19:40 19:40 00:40 CBC w Diff WBC RBC Hgb Hct MCV MCH MCHC RDW Plt Count MPV Neut % (Auto) Lymph % (Auto) [place] % (Auto) Eos % (Auto) Baso % (Auto) Neut # (Auto) Lymph # (Auto) [place] # (Auto) Eos # (Auto) Baso # (Auto) WBC Differential Diff Scan Differential Comment Platelet Estimate Platelet Morphology PT INR APTT Sodium Potassium Chloride Carbon Dioxide Anion Gap BUN Creatinine Estimated GFR POC Glucose Random Glucose Lactic Acid 1.2 Calcium Magnesium Total Bilirubin AST ALT Alkaline Phosphatase Ammonia 18 Troponin I 0.14 H Total Protein Albumin Triglycerides Cholesterol LDL Cholesterol, Calc HDL Cholesterol Cholesterol/HDL Ratio Urine Color Urine Clarity Urine pH Ur Specific [place] Urine Protein Urine Glucose (UA) Urine Ketones Urine Occult Blood Urine Nitrate Urine Bilirubin Urine Urobilinogen Ur Leukocyte Esterase Urine WBC Ur Squamous Epith Cells Urine Bacteria Urine Mucus Micro UA Comment Ur Microscopic Review 04/19/18 04/19/18 04/19/18 04:00 04:00 04:00 CBC w Diff Slide review pending WBC 6.7 RBC 6.34 H Hgb 15.3 Hct 48.2 H MCV 76.1 L MCH 24.2 L MCHC 31.8 L RDW 15.8 Plt Count 558 H MPV 9.6 Neut % (Auto) 68.2 Lymph % (Auto) 22.7 [place] % (Auto) 6.8 Eos % (Auto) 0.3 Baso % (Auto) 2.0 Neut # (Auto) 4.6 Lymph # (Auto) 1.5 [place] # (Auto) 0.5 Eos # (Auto) 0.0 Baso # (Auto) 0.1 WBC Differential . Diff Scan Auto diff confirmed Differential Comment . Platelet Estimate Platelet Morphology PT INR APTT Sodium 136 Potassium 3.8 D Chloride 103 Carbon Dioxide 25.5 Anion Gap 8 BUN 19 H Creatinine 1.10 H Estimated GFR 48 L POC Glucose Random Glucose 100 Lactic Acid Calcium 8.8 Magnesium Total Bilirubin 0.4 AST 25 ALT 13 Alkaline Phosphatase 72 Ammonia Troponin I 0.16 H Total Protein 7.7 Albumin 3.0 L Triglycerides 75 Cholesterol 122 LDL Cholesterol, Calc 71 HDL Cholesterol 35.6 L Cholesterol/HDL Ratio 3.42 Urine Color Urine Clarity Urine pH Ur Specific [place] Urine Protein Urine Glucose (UA) Urine Ketones Urine Occult Blood Urine Nitrate Urine Bilirubin Urine Urobilinogen Ur Leukocyte Esterase Urine WBC Ur Squamous Epith Cells Urine Bacteria Urine Mucus Micro UA Comment Ur Microscopic Review 04/19/18 04/19/18 04:00 11:30 CBC w Diff WBC RBC Hgb Hct MCV MCH MCHC RDW Plt Count MPV Neut % (Auto) Lymph % (Auto) [place] % (Auto) Eos % (Auto) Baso % (Auto) Neut # (Auto) Lymph # (Auto) [place] # (Auto) Eos # (Auto) Baso # (Auto) WBC Differential Diff Scan Differential Comment Platelet Estimate Platelet Morphology PT INR APTT 57.7 H D 48.3 H Sodium Potassium Chloride Carbon Dioxide Anion Gap BUN Creatinine Estimated GFR POC Glucose Random Glucose Lactic Acid Calcium Magnesium Total Bilirubin AST ALT Alkaline Phosphatase Ammonia Troponin I Total Protein Albumin Triglycerides Cholesterol LDL Cholesterol, Calc HDL Cholesterol Cholesterol/HDL Ratio Urine Color Urine Clarity Urine pH Ur Specific [place] Urine Protein Urine Glucose (UA) Urine Ketones Urine Occult Blood Urine Nitrate Urine Bilirubin Urine Urobilinogen Ur Leukocyte Esterase Urine WBC Ur Squamous Epith Cells Urine Bacteria Urine Mucus Micro UA Comment Ur Microscopic Review - Imaging Impressions Head CT 04/18/18 18:19 CONCLUSION: Slight chronic small vessel ischemic and atrophic changes. Cervical Spine CT 04/18/18 19:23 CONCLUSION: Degenerative spondylosis without any significant compromise to the exiting nerve roots or the thecal sac. Chest X-Ray 04/18/18 19:30 CONCLUSION: Mild left lung atelectasis . Review/Management - Diagnosis (1) New onset seizure Code(s): R56.9 - Unspecified convulsions Status: Acute Current Visit: Yes (2) Elevated troponin I level Code(s): R74.8 - Abnormal levels of other serum enzymes Status: Acute Current Visit: Yes (3) Thrombocytosis Code(s): D47.3 - Essential (hemorrhagic) thrombocythemia Status: Acute Current Visit: Yes - Review/Management Plan: Seizure possibly secondary to hypoglycemia. However patient states she had an episode in the distant past. Possible she may have underlying epilepsy however additional metabolic factors include COPD, thrombocytosis, renal insufficiency. No leukocytosis. Low-grade temp Neurologically looks well Recommendation Follow-up EEG Keppra 250 twice daily. S/B discussed the patient she like to proceed with treatment Outpatient follow-up once medically cleared No driving, operating any heavy machinery or dangerous machinery, swimming alone for at least 6 months of being seizure, spell free.
[2018-04-19] MEDS: levETIRAcetam 500 MG Tablet PO SCH ×2 (14:30→20:53)
[2018-04-20 04:27] LABS: Baso % (Auto) 0.4 % (0.0-2.0); Eos % (Auto) 0.4 % (0.0-4.0); Hematocrit 48.2 % (35.0-46.0); Hemoglobin 15.2 gm/dL (11.6-15.3); Lymph # (Auto) 1.6 th/mm3 (1.0-4.8); Lymph % (Auto) 27.1 % (9.0-44.0); Mean Corpuscular HGB Conc 31.5 % (32.0-36.0); Mean Corpuscular Hemoglobin 24.2 pg (27.0-34.0); Mean Corpuscular Volume 76.8 fL (80.0-100.0); Mean Platelet Volume 8.8 fL (7.0-11.0); Mono # (Auto) 0.5 th/mm3 (0.0-0.9); Mono % (Auto) 7.8 % (0.0-8.0); Neut # (Auto) 3.7 th/mm3 (1.8-7.7); Neut % (Auto) 64.3 % (16.0-70.0); Platelet Count 522 th/mm3 (150-450); Red Blood Count 6.27 mil/mm3 (4.00-5.30); Red Cell Distribution Width 16.2 % (11.6-17.2); White Blood Count 5.8 th/mm3 (4.0-11.0)
[2018-04-20 04:32] LABS: Chloride 109 meq/L (98-107); Potassium 3.8 meq/L (3.5-5.1); Sodium 140 meq/L (136-145)
[2018-04-20 04:36] LABS: Albumin 2.9 g/dL (3.4-5.0); Anion Gap 5 meq/L (5-15); Calcium 8.7 mg/dL (8.5-10.1)
[2018-04-20 04:37] LABS: Blood Urea Nitrogen 16 mg/dL (7-18); Glucose,Random 97 mg/dL (74-106)
[2018-04-20 04:40] LABS: Alanine Aminotransferase 14 U/L (10-53); Aspartate Aminotransferase 25 U/L (15-37); Glomerular Filtration Rate 54 mL/min (>89)
[2018-04-20 04:41] LABS: Total Protein 7.5 g/dL (6.4-8.2)
[2018-04-20 04:42] LABS: Alkaline Phosphatase 68 U/L (45-117)
[2018-04-20 04:44] LABS: Troponin I 0.18 ng/mL (0.02-0.05)
[2018-04-20 05:30] LABS: Platelet Morphology Normal (Normal)
[2018-04-20] MEDS: levETIRAcetam 500 MG Tablet PO SCH ×2 (08:50→20:57)
[2018-04-20] MEDS: Senna/Docusate Sodium 8.6/50 MG Tablet PO SCH ×2 (08:50→20:57)
--- NOTE | 2018-04-20 10:06 | MG ---
cc: Frederick Zelaya MD EEG RECORD NUMBER: [id number] FINDINGS: A 7-9 Hz posterior rhythm, 10-40 mV. Good anterior-posterior gradient. Frontal beta. Moderate frontal forehead myogenic artifact. Good driving with photic stimulation. Single lead EKG showing sinus rhythm. Good EEG variability reactivity. Attenuation mild slowing towards the end, suggestive of drowsy state, followed by stage I sleep, vertex waves. INTERPRETATION: Normal awake sleep EEG. Clinical correlation. Frederick Zelaya MD MG/rh , 08:15 AM , 08:18 AM
--- NOTE | 2018-04-20 11:40 | P.PNIM ---
Subjective Interval history: No further seizure activity overnight. Patient had physical therapy evaluation yesterday and shows weakness. She is not physically functioning at baseline yet. Physical Exam Vital signs: Vital Signs 04/19/18 12:00 04/19/18 13:00 04/19/18 14:00 Temperature 98.9 F Pulse Rate 76 68 64 Respiratory Rate 24 28 H 22 Blood Pressure Pulse Oximetry 04/19/18 15:00 04/19/18 16:00 04/19/18 16:33 Temperature 99.0 F 99.5 F Pulse Rate 64 66 76 Respiratory Rate 23 22 24 Blood Pressure 148/75 H 148/75 H Pulse Oximetry 96 04/19/18 17:00 04/19/18 18:00 04/19/18 19:00 Temperature Pulse Rate 74 76 64 Respiratory Rate 32 H 29 H 18 Blood Pressure Pulse Oximetry 04/19/18 19:42 04/19/18 19:51 04/19/18 20:00 Temperature Pulse Rate 78 62 Respiratory Rate 9 L 20 Blood Pressure 148/78 H 119/61 Pulse Oximetry 96 98 04/19/18 21:00 04/19/18 22:00 04/19/18 23:00 Temperature Pulse Rate 68 64 64 Respiratory Rate 24 11 L 15 Blood Pressure 119/60 111/63 98/45 L Pulse Oximetry 04/20/18 00:00 04/20/18 01:00 04/20/18 02:00 Temperature Pulse Rate 58 L 64 66 Respiratory Rate 20 19 14 Blood Pressure 110/63 141/76 H 127/68 Pulse Oximetry 04/20/18 03:00 04/20/18 04:00 04/20/18 05:00 Temperature Pulse Rate 62 62 62 Respiratory Rate 27 H 21 19 Blood Pressure 118/69 131/70 135/80 Pulse Oximetry 04/20/18 07:19 04/20/18 08:00 Temperature 97.4 F L Pulse Rate 76 Respiratory Rate 19 Blood Pressure 141/85 H Pulse Oximetry 98 98 Intake & Output 04/19/18 04/20/18 04/20/18 18:59 06:59 18:59 Intake Total 3100 / 3100 180 / 180 Output Total 1002 / 1002 900 / 900 Balance 8 / 2098 -720 / -720 Weight 65.1 kg Intake: IV 1900 / 1900 NS Inj 1,000 ML @ 100 mls/hr IV 1900 / 1900 .CONT .Q10H SANDRA Rx#:[id number] Oral 1200 / 1200 180 / 180 Output: Urine 1000 / 1000 900 / 900 Stool 2 / 2 0 / 0 Other: # Voids 4 Date of Last Bowel Movement 04/18/18 04/18/18 Narrative: GENERAL: NAD, A&Ox3 HEAD: Normocephalic. NECK: Supple, trachea midline. No lymphadenopathy. EYES: No scleral icterus. No injection or drainage. CARDIOVASCULAR: Regular rate and rhythm without murmurs, gallops, or rubs. RESPIRATORY: Breath sounds equal bilaterally. No accessory muscle use. GASTROINTESTINAL: Abdomen soft, non-tender, nondistended. MUSCULOSKELETAL: No cyanosis, or edema. SKIN: Warm and dry. NEURO: No focal neurological deficits. Results Labs CBC & Chem 7: 04/20/18 04:10 04/20/18 04:10 Labs: Microbiology 04/19/18 04:00 Stool Stool Occult Blood (STEFANY) - Final Hemoccult negative Assessment and Plan (1) New onset seizure: Code(s): R56.9 - Unspecified convulsions Status: Acute (2) Elevated troponin I level: Code(s): R74.8 - Abnormal levels of other serum enzymes Status: Acute (3) Thrombocytosis: Code(s): D47.3 - Essential (hemorrhagic) thrombocythemia Status: Acute Plan 77-year-old female admitted secondary to acute seizure. Stable for transfer out of ICU today. Continue monitoring another 24 hours for seizure activity. Continue Keppra. Continue physical therapy. Possible discharge home tomorrow. Acute seizure Past history of seizure EEG Neurology consulted Continue antibiotics Follow clinically for any recurrence of seizures Neurochecks Seizure precautions CAD Chronic Angina Elevated Troponin (mild) Likely related to cardiac strain or chronic kidney disease Continue monitoring troponin levels Clinically this patient has no symptoms of acute coronary syndrome Monitor on telemetry Chronic kidney disease Follow renal function Avoid nephrotoxins Diabetes mellitus type 2 Follow blood sugars Insulin sliding scale Diabetic diet COPD No acute exacerbations Follow clinically Continue baseline treatments Hyperlipidemia Continue present treatment Follow as an outpatient Hypertension Continue baseline treatment Follow blood pressures Adjust treatments as needed DVT prophylaxis SCDs Progress Note: Quality VTE Deep Vein Thrombosis/Pulmonary Embolism Present on Admission: No
[2018-04-20] MEDS: Sod Chloride 0.9% Inj 1,000 ML IV.CONT SCH ×3 (14:20→23:47)
[2018-04-21 06:31] LABS: Hematocrit 44.7 % (35.0-46.0); Hemoglobin 13.9 gm/dL (11.6-15.3); Mean Corpuscular HGB Conc 31.2 % (32.0-36.0); Mean Corpuscular Hemoglobin 24.3 pg (27.0-34.0); Mean Corpuscular Volume 77.9 fL (80.0-100.0); Mean Platelet Volume 9.9 fL (7.0-11.0); Platelet Count 429 th/mm3 (150-450); Red Blood Count 5.74 mil/mm3 (4.00-5.30); Red Cell Distribution Width 16.9 % (11.6-17.2); White Blood Count 6.9 th/mm3 (4.0-11.0)
[2018-04-21] MEDS: levETIRAcetam 500 MG Tablet PO SCH (08:52)
[2018-04-21] MEDS: Senna/Docusate Sodium 8.6/50 MG Tablet PO SCH (08:52)
[2018-04-21] MEDS: Sod Chloride 0.9% Inj 1,000 ML IV.CONT SCH (08:57)
[2018-04-21] MEDS ORDERED: Isosorbide Mononitrate 30 MG ER 24HR Tablet (Imdur) PO SCH (09:00)
[2018-04-21] MEDS ORDERED: Allopurinol 100 MG Tablet PO SCH (09:00)
[2018-04-21] MEDS ORDERED: Levothyroxine 100 MCG Tablet PO SCH (09:00)
[2018-04-21] MEDS ORDERED: Lisinopril 10 MG Tablet PO SCH (09:00)
[2018-04-21 09:53] VITALS: BP 114/60; PULSE 58; RESP 20; TEMP 97
--- NOTE | 2018-04-21 10:03 | P.DS ---
DS: Providers Date of admission: 04/18/18 21:16 Primary care physician: Do Jacque Miguel Consults: 04/18/18 21:09 Consult to Neurology Routine Consulting Provider: Frederick Zelaya Reason for Consultation: New Onset Seizure CONSULT FOR AM Notified:: Service Spoke with:: madelin Date Notified:: 04/18/18 Time Notified:: 21:48 Ordering Provider: СВЕТЛАНА 04/19/18 14:08 HUB Only Consult Order Routine Consulting Provider: Benitez Marquis 04/19/18 15:27 HUB Only Consult Order Routine Consulting Provider: Benitez Marquis Brief History from admission: Mrs. Moon is a 77-year-old female. She has a distant past history of seizure. It is reported by her daughter who witnessed the seizure that she had a 2-minute generalized tonic-clonic seizure. Subclinical seizure activity could have also been present as it was reported that she had some confusion which was an acute change from baseline starting about 3 days ago. She can recall being slightly off with her cognitive function. She does not recall the seizure. Postictal state was present but has resolved by the time I am seeing this patient. She did vomit after the seizure but does not have persistent nausea. At baseline she has COPD and uses oxygen intermittently. She also has coronary artery disease and chronic angina. She has not had any chest pain changes from baseline. When seen today she does not report chest pain. Troponin levels have been monitored and have stayed from 0.13-0.16, relatively flat. Cardiac strain on top of underlying coronary artery disease could have occurred during the 2-minute seizure. Additionally patient apparently has some mild chronic kidney disease which could also cause chronic mild elevation in her troponin. No acute chest pains reported by the patient before or after seizure activity. DS: Diagnosis Discharge Diagnosis (1) New onset seizure: Status: Acute (2) Elevated troponin I level: Status: Acute (3) Thrombocytosis: Status: Acute DS: Summary Mrs. Moon is a 77-year-old female. She came into the hospital after having a seizure episode. In the past she has had a seizure before, but very remotely. She was started on Keppra while here. No further seizure activity. Additionally patient had an elevated troponin but she has some chronic kidney disease and troponin levels were trended without acute concerns for any cardiac etiology. No chest pain expressed while here. Physical therapy was performed the first morning after admit. She was not functioning to baseline at that time. However, at this point she has improvement in her functional capacity and she feels that she is ambulating at baseline, which is with a cane. She is medically stable and cleared for discharge back to home today. She will discharged on Keppra 250 mg p.o. twice daily. Time Spent with Patient Total time spent providing and/or coordinating discharge services: Less than 30 minutes Quality: VTE Deep Vein Thrombosis/Pulmonary Embolism Present on Admission: No Results Labs on day of discharge: Labs from last 24 hours 04/21/18 04/21/18 04/20/18 04:57 04:57 11:50 WBC 6.9 RBC 5.74 H Hgb 13.9 Hct 44.7 MCV 77.9 L MCH 24.3 L MCHC 31.2 L RDW 16.9 Plt Count 429 MPV 9.9 APTT 25.9 D 51.8 H Impressions ITS Impressions Head CT 04/18/18 18:19 CONCLUSION: Slight chronic small vessel ischemic and atrophic changes. Cervical Spine CT 04/18/18 19:23 CONCLUSION: Degenerative spondylosis without any significant compromise to the exiting nerve roots or the thecal sac. Chest X-Ray 04/18/18 19:30 CONCLUSION: Mild left lung atelectasis . Discharge Plan Discharge Disposition Patient Disposition: W/Home Health Service Discharge Condition Condition: Stable Discharge Order Discharge Orders: Discharge Order (Routine); Ordered 04/21/18 Ordered By: Anthony Gross Discharge Details Anticipated Discharge Date: 04/21/18 Discharge Comment: Prescription transmitted to [facility] pharmacy listed. Physicians Team Primary Care Provider: Do Jacque Miguel Attending Provider: Anthony Gross Other Providers: Frederick Zelaya ; [employer] Rxs /Orders / Referrals /Forms Prescriptions: New levetiracetam [Keppra] 500 mg Tablet 250 mg PO BID Qty: 60 RF: 0 Continue isosorbide mononitrate 30 mg Tablet Extended Release 24 Hr 30 mg PO DAILY RF: 0 allopurinol 100 mg Tablet 100 mg PO DAILY RF: 0 levothyroxine 100 mcg Tablet 100 mcg PO DAILY RF: 0 clonidine HCl 0.2 mg Tablet 0.2 mg PO BID RF: 0 pantoprazole 40 mg Tablet,Delayed Release (Dr/Ec) 40 mg PO DAILY RF: 0 simvastatin 20 mg Tablet 20 mg PO QPM RF: 0 lisinopril-hydrochlorothiazide 10-12.5 mg Tablet 1 tab PO DAILY RF: 0 Referrals: Do Jacque Miguel MD [Primary Care Provider] - See Instructions Status ED Status: Left Department
--- NOTE | 2018-04-21 10:16 | P.DCO ---
Diagnosis (1) New onset seizure: Status: Acute Physical Therapy Order: Evaluate and treat, Improve ambulation and Strength and gait training Home Health Nursing Order: Medical education and Nursing assessment with vital signs Case Management Consult Case Management Consult-Home Health: Yes I have seen patient Stephanie Moon on 04/21/18. My clinical findings support the need for the requested home health care services because: Limited mobility due to disease progression, Deconditioned with increased weakness and Limited ability to care for self I certify that my clinical findings support that this patient is homebound because: Unsteady gait/balance, Unsafe to leave home unassisted and Unable to use public transportation
[2018-04-21 11:22] VITALS: O2SAT 95
== END 2018-04-21 11:36 | disposition home health service (06) | DRG 101 ==
LOC: PHED 18:01 → PHEDA 21:16 → PHICU 22:51 → PH3 04-20 14:51
PROVIDERS: ADMIT Hospitalist; ATTEND Hospitalist
DX: G47.30 Sleep apnea, unspecified; R74.8 Abnormal levels of other serum enzymes; J44.9 Chronic obstructive pulmonary disease, unspecified; I25.119 Atherosclerotic heart disease of native coronary artery with unspecified angina pectoris; M10.9 Gout, unspecified; D47.3 Essential (hemorrhagic) thrombocythemia; R73.03 Prediabetes; E78.5 Hyperlipidemia, unspecified; I12.9 Hypertensive chronic kidney disease with stage 1 through stage 4 chronic kidney disease, or unspecified chronic kidney disease; E03.9 Hypothyroidism, unspecified; R56.9 Unspecified convulsions; Z87.891 Personal history of nicotine dependence; N18.2 Chronic kidney disease, stage 2 (mild)
CPT/HCPCS: 70450; 71010; 71045; 72125; 80048; 80053; 80061; 81001; 82140; 82272; 82948; 82962; 83036; 83605; 83735; 84484; 85025; 85027; 85610; 85730; 90774; 90775; 93005; 95819; 96374; 96375; 97162; 99285; C8952; J1644; J2060; J2405; J2765; J7030